=== PATIENT | male | born 1945 | race Caucasian/White ===

== ENCOUNTER 2025-02-01 18:57 | Emergency (ER) | payer MEDICARE ==
[2025-02-01] MEDS: MORPHINE SULFATE 4 MG/ML SYRINGE IVP STA (19:15)
[2025-02-01] MEDS: LORazepam 1 MG/0.5 ML VIAL IV STA ×2 (19:15→19:22)
--- NOTE | 2025-02-01 19:22 | ED ---
General Adult HPI - General Chief complaint: Cardiac Arrest/CPR Stated complaint: cpr Source: family, EMS, RN notes reviewed, old records reviewed Mode of arrival: EMS Limitations: physical limitation - History of Present Illness Initial comments: 79-year-old male who presents as [id number] cardiac arrest. Patient had been at home, he suddenly collapsed with head injury. Family did start CPR and when paramedics arrived he was in a shockable rhythm. According to the AED. Patient was then in asystole when placed on the monitor. CPR was continued. He was intubated with an endotracheal tube. CPR was continued during transport with a brief return of spontaneous circulation. Paramedics were unaware that the patient did have a DO NOT RESUSCITATE order and would not want to be on life support including an endotracheal tube. After I discussed this with the family they did request that the patient be extubated according to his wishes. - Related Data Allergies Allergy/AdvReac Type Severity Reaction Status Date / Time No Known Allergies Allergy Verified 02/01/25 21:02 Review of Systems ROS Statement: Those systems with pertinent positive or pertinent negative responses have been documented in the HPI. ROS Other: All systems not noted in ROS Statement are negative. Past Medical History Past Medical History: Unable to Obtain, Atrial Fibrillation, Myocardial Infarction ([place]) Additional Past Medical History / Comment(s): Stents History of Any Multi-Drug Resistant Organisms: Unobtainable Past Surgical History: Unable to Obtain Past Psychological History: Unable to Obtain Smoking Status: Unknown if ever smoked Past Alcohol Use History: Unable to Obtain Past Drug Use History: Unable to Obtain General Exam Limitations: physical limitation General appearance: obtunded Head exam: Present: other (Forehead hematoma and abrasion) Eye exam: Present: normal appearance (Corneal clouding on the left, pupils are nonreactive bilaterally, no corneal reflex). Absent: PERRL ENT exam: Present: other (Endotracheal tube) Respiratory exam: Present: other (Decreased breath sounds on the left, endotracheal tube is withdrawn 3 cm to 23 at the lip) Cardiovascular Exam: Present: regular rate, normal rhythm, other GI/Abdominal exam: Absent: distended, tenderness Neurological exam: Absent: alert Skin exam: Present: pallor Course - Reevaluation(s) Reevaluation #1: 02/01/25 19:05 This was an activated level 1 trauma due to head injury and arrest. I do suspect this was primary cardiac etiology. Reevaluation #2: 02/01/25 19:43 Dr. Crockett, and biomedical equipment support specialist have been paged. Medical Decision Making - Medical Decision Making Was pt. sent in by a medical professional or institution (OTONIEL Winn, [facility], urgent care, hospital, or long-term...) When possible be specific @ -No Did you speak to anyone other than the patient for history (EMS, parent, family, police, friend...)? What history was obtained from this source @ -No Did you review nursing and triage notes (agree or disagree)? Why? @ -I reviewed and agree with nursing and triage notes Were old charts reviewed (outside hosp., previous admission, EMS record, old EKG, old radiological studies, urgent care reports/EKG's, long-term records)? Report findings @ -No old charts were reviewed Differential Diagnosis: cardiopulmonary arrest, intracranial hemorrhage, traumatic arrest EKG interpreted by me (3pts min.). @ -As above X-rays interpreted by me (1pt min.). @Chest x-ray and pelvis x-ray are negative for traumatic injury CT interpreted by me (1pt min.). @ -None done U/S interpreted by me (1pt. min.). @ -None done What testing was considered but not performed or refused? (CT, X-rays, U/S, labs)? Why? @ -None What meds were considered but not given or refused? Why? @ -None Did you discuss the management of the patient with other professionals (professionals i.e. OTONIEL Winn, [facility], lab, RT, psych nurse, social media strategist, medical assistant dermatology, teacher, special weapons unit officer, counter caser)? Give summary @ -Patient was evaluated as a level 1 trauma due to the head injury and arrest. Dr. Paris. Was smoking cessation discussed for >3mins.? @ -No Was critical care preformed (if so, how long)? @ -Yes, 35 minutes Were there social determinants of health that impacted care today? How? (Homelessness, low income, unemployed, alcoholism, drug addiction, transportation, low edu. Level, literacy, decrease access to med. care, long term, rehab)? @ -No Was there de-escalation of care discussed even if they declined (Discuss DNR or withdrawal of care, Hospice)? DNR status @ -DNR. I did confirm with the entire family who was present that this patient would not want intubation or life support. At that time the family numbers were able to be with the patient and the endotracheal tube was removed. What co-morbidities impacted this encounter? (DM, HTN, Smoking, COPD, CAD, Cancer, CVA, ARF, Chemo, Hep., AIDS, mental health diagnosis, sleep apnea, morbid obesity)? @ -Coronary disease Was patient admitted / discharged? Hospital course, mention meds given and rout e, prescriptions, significant lab abnormalities, going to OR and other pertinent info. @ -79-year-old male presenting as [id number] cardiac arrest. Prolonged downtime. Patient received 5 total epi's and was defibrillated once. He had an episode of both PEA and asystole throughout resuscitation by paramedics. He had CPR in progress for prolonged period of time with the Luc device. Upon arrival pulse check was obtained and the patient did have a carotid pulse. He continues to receive respiratory support through the endotracheal tube and BVM. Patient family members arrived and provided DNR status and confirmed that the patient did not want life support or intubation. Family was at bedside and the patient was extubated. Patient ultimately passed at 1931. Undiagnosed new problem with uncertain prognosis? @ -No Drug Therapy requiring intensive monitoring for toxicity (Heparin, Nitro, Insulin, Cardizem)? @ -No Were any procedures done? @ -No Diagnosis/symptom? @ -[id number] cardiac arrest Acute, or Chronic, or Acute on Chronic? @Acute Uncomplicated (without systemic symptoms) or Complicated (systemic symptoms)? @ -[Complicated Side effects of treatment? @ -No Exacerbation, Progression, or Severe Exacerbation? @ -No Poses a threat to life or bodily function? How? (Chest pain, [place], HI, pneumonia, PE, COPD, DKA, ARF, appy, cholecystitis, CVA, Diverticulitis, Homicidal, Suicidal, threat to staff... and all critical care pts) @Yes, cardiac arrest Critical Care Time Critical Care Time: Yes Total Critical Care Time: 35 Disposition Clinical Impression: Sudden cardiac , Cardiac arrest Disposition: Condition: Undetermined Is patient prescribed a controlled substance at d/c from ED?: No Referrals: None,Stated [REFERRING] - 1-2 days Time of Disposition: 19:31 Preliminary Cause of : Cardiopulmonary arrest, arrhythmia
--- NOTE | 2025-02-01 19:27 | XR ---
EXAMINATION TYPE: XR pelvis AP view DATE OF EXAM: 02/01/2025 7:18 PM COMPARISON: None CLINICAL INDICATION: Male, 79 years old with history of CARDIAC ARREST P1 TRAUMA; [facility], pain TECHNIQUE: XR pelvis AP view, examined in a single projection. FINDINGS: No acute fracture or dislocation. Osseous structures are demineralized. Right hip arthropla sty without definite evidence of acute hardware failure. Moderate left hip degenerative osteoporosis arthritis. Visualized pelvic bones appear grossly intact. IMPRESSION: No acute osseous pathology. [facility], , 02/01/2025 7:25 PM
--- NOTE | 2025-02-01 19:29 | XR ---
EXAMINATION TYPE: XR chest 1V DATE OF EXAM: 02/01/2025 7:18 PM COMPARISON: None CLINICAL INDICATION: Male, 79 years old with history of CARDIAC ARREST P1 TRAUMA; [facility] TECHNIQUE: XR chest 1V Frontal view of the chest. FINDINGS: Lungs/Pleura: There is no evidence of pleural effusion, focal consolidation, or pneumothorax. Pulmonary vascularity: Unremarkable. Heart/mediastinum: Cardiomegaly. Musculoskeletal: No acute osseous pathology. Partially visualized bilateral shoulder arthroplasty dev ices. Other findings: None Lines/Tubes: Endotracheal tube is visualized terminating in the mid thoracic trachea possibly 5.3 cm above the car pau. Subcutaneous pacing device noted overlying the lower lateral right chest wall. IMPRESSION: 1. Cardiomegaly without acute pulmonary process. 2. Endotracheal tube terminates partially 5.3 cm above the liz. [facility], , 02/01/2025 7:26 PM
--- NOTE | 2025-02-01 19:46 | P.CON ---
Consult Note - . Consult date: 02/01/25 Assessment/Plan:: 79-year-old male who presents as cardiac arrest and fall. Level 1 Trauma Activated. Patient seen and examined within 30 minutes. Patient had been at home, he suddenly collapsed with head injury. He has a noted hematoma on his front scalp. Family did start CPR and paramedics continued CPR. He was intubated with an endotracheal tube. CPR was continued during transport with a brief return of spontaneous circulation. Paramedics were unaware that the patient did have a DO NOT RESUSCITATE order and would not want to be on life support including an endotracheal tube. After the ER physician discussed this with the family they did request that the patient be extubated according to his wishes. Review of Systems ROS Statement: Those systems with pertinent positive or pertinent negative responses have been documented in the HPI. ROS Other: All systems not noted in ROS Statement are negative. Past Medical History Past Medical History: Unable to Obtain, Atrial Fibrillation, Myocardial Infarction ([place]) Additional Past Medical History / Comment(s): Stents History of Any Multi-Drug Resistant Organisms: Unobtainable Past Surgical History: Unable to Obtain Past Psychological History: Unable to Obtain Smoking Status: Unknown if ever smoked Past Alcohol Use History: Unable to Obtain Past Drug Use History: Unable to Obtain General Exam Limitations: physical limitation General appearance: obtunded Head exam: Present: other (Forehead hematoma and abrasion) Eye exam: Present: normal appearance (Corneal clouding on the left, pupils are nonreactive bilaterally, no corneal reflex). Absent: PERRL ENT exam: Present: other (Endotracheal tube) Respiratory exam: Present: other (Decreased breath sounds on the left, endotracheal tube is withdrawn 3 cm to 23 at the lip) Cardiovascular Exam: Present: regular rate, normal rhythm, other GI/Abdominal exam: Absent: distended, tenderness Neurological exam: Absent: alert Skin exam: Present: pallor 79 year old male with cardiac arrest and fall with front scalp hematoma presenting as a Level 1 Trauma -Patient has a DO NOT RESUSCITATE order. Family requested extubation and no further intervention. No imaging performed. No acute surgical intervention [facility] [phone]
== END 2025-02-01 23:19 | disposition expired ==
LOC: SUPCPDRO 18:57 → EC 18:57
DX: I46.9 Cardiac arrest, cause unspecified (principal); I48.91 Unspecified atrial fibrillation
CPT/HCPCS: 92950; 72170; 71045; 99291; 96374; 96375; 96376; J2060; J2270